=== PATIENT | male | born 1955 | race Caucasian/White ===

== ENCOUNTER 2021-02-02 12:32 | Emergency (ER) | payer OTHER, MEDICARE, SELFPAY ==
[2021-02-02] VITALS (21 sets, daily range): BP systolic 147–164; BP diastolic 61–75; PULSE 81–111; RESP 7–21; TEMP 36.5; O2SAT 92–100
[2021-02-02] MEDS: fentaNYL 100 MCG/2 ML VIAL IVP (12:45)
--- OUTSIDE RECORDS SUMMARY | 2021-02-02 12:58 | XMS_ITS ---
:1955 Author Organization [facility] Address [address] [facility] [address] [place] [address] Care Team Providers Name Role Phone Cox Unavailable Unavailable PROBLEMS ALLERGIES No Known Allergies ENCOUNTERS IMMUNIZATIONS SOCIAL HISTORY REASON FOR REFERRAL FUNCTIONAL STATUS PLAN OF CARE VITAL SIGNS MEDICATIONS PROCEDURES RESULTS REASON FOR VISIT Insurance Providers MEDICAL (GENERAL) HISTORY
[2021-02-02] MEDS: HYDROmorphone 2 MG/ML VIAL 1 MG IVP (13:00)
[2021-02-02] MEDS: Ketamine 500 MG/10 ML VIAL 40 MG IVP (13:15)
--- NOTE | 2021-02-02 13:22 | DI.RAD_ITS ---
EXAM: XR SHOULDER RT 1V CLINICAL HISTORY: pain, possible dislocation. TECHNIQUE: 2D digital imaging was performed. COMPARISON: No exams were available for comparison FINDINGS: A single supine AP view of the shoulder was obtained. The findings are most suggestive of an anterio r dislocation. However complete shoulder series should obtained. IMPRESSION: Limited examination of the left shoulder with only a single view. The findings are suspicious for an anterior shoulder dislocation. A complete shoulder series should be considered for further evaluati on. DATA REPOSITORY: RADIATION DOSE DELIVERED:
[2021-02-02] MEDS: Propofol 200 MG/20 ML VIAL 100 MG IVP (13:25)
--- NOTE | 2021-02-02 13:36 | RESPIRATORY ---
02/02/21- Pt here for a Left shoulder reduction. BVM, Suction set up at bedside. Pre 1320- HR 91, SPO2 100% on 2 LPM NC,ETCO22 29 mmhg, 163/70. During pt Spo2 dropped to 90% Oxygen turned up to 4 LPM to maintain SPO2 of 92% or better. 1330 Post- HR 94, SPO2 96% on 4 LPM NC ETCO2 36 mm hg, 150/68. Pt is waking up and concersing . Pt titrated back down to 2 LPM NC 96%.
--- NOTE | 2021-02-02 13:51 | W.ED.GENAD ---
Discharge Plan Disposition Patient Disposition: HOME Condition: Stable Discharge Details Clinical Impression: Closed dislocation of left shoulder, Fall due to ice or snow, Left hand paresthesia Primary Care Provider: Kevyn Cox ED Provider: Teto Sharp Home Meds and New Rx's Prescriptions: No Action rosuvastatin 20 mg Tablet PO DAILY RF: 0 Discharge Instructions Instructions: Shoulder Dislocation (ED), Paresthesia (ED) Additional Instructions: Please take ibuprofen over the counter. Take 600mg by mouth every 6 hours as needed for pain. Please take acetaminophen (tylenol) - 650mg every 6 hours by mouth as needed for pain. Keep your arm in sling. Please follow-up with orthopedics. Call today to schedule follow-up. Please contact your primary care physician to arrange follow-up. Return to the ER for any worsening or new concerning symptoms. Referrals: [facility] [Provider Group] Kevyn Cox [Primary Care Provider] - Discharge Data Discharge Date/Time-TO BE ENTERED AT DEPARTURE: 02/02/21 15:34 Medical Decision Making 66-year-old male presents with left shoulder injury from slip and fall from standing to the ground. Patient has tingling paresthesias of left digits. Patient has deformity of left shoulder consistent with anterior shoulder dislocation. No other injuries identified on exam. X-ray of the left shoulder, limited secondary to pain was interpreted by me: Consistent with shoulder dislocation. No humeral shaft fracture. Patient in severe distress on arrival secondary to pain. He was given fentanyl 100 mg initially and then additional dose of Dilaudid 1 mg IV. Patient provided verbal consent to proceed with left shoulder reduction under procedural sedation. Procedural sedation performed without complication and joint was reduced, please see procedure notes. Patient was observed in the emergency department post procedurally until return to baseline mentation and for some time thereafter. Patient's arm was splinted with a sling. He did note continued tingling left digits specifically digit 1 and 2 distally. I did call and consult with Dr. Bianchi, on-call orthopedics, regarding paresthesia. He noted that given joint reduction patient should expect improvement in paresthesia. I discussed recommendation for patient to follow-up with orthopedics and to return should have any worsening or new concerning symptoms. HPI General Mode of arrival: ambulatory. Date/Time Provider Initiated Documentation: 02/02/21 12:41. Limitations to Documentation: no limitations. Information obtained by: patient. HPI Narrative: 66-year-old male presents with chief complaint of left shoulder pain. [place] ground and thinks he dislocated shoulder. Pain is severe and constant. Pain localized to the shoulder. He did not hit his head and denies neck pain. No other injury. Patient does note some tingling paresthesia of his left hand that is mild. Patient has never dislocated shoulder in the past. Related Data Home Medications Medication Instructions Recorded Confirmed rosuvastatin mg PO DAILY 02/02/21 Allergies Allergy/AdvReac Type Severity Reaction Status Date / Time No Known Allergies Allergy Unverified 02/02/21 15:42 General Stated Complaint: Orthopedic RANDI: 3 Review of Systems All systems reviewed & are unremarkable except as noted in HPI and below Constitutional Constitutional: Denies fever(s) Cardiovascular Cardiovascular: Denies dyspnea Respiratory Respiratory: Denies dyspnea Musculoskeletal Musculoskeletal: Reports as per HPI Neurologic Neurologic: Reports as per HPI [facility] Social History Smoking/Tobacco Use Status: Former Tobacco Use Quit Date: 11/27/87 Smoking risk assessment performed?: Yes Drug use: Never Substance use type: does not use Do you feel safe at home: Yes Do you feel safe in your relationship?: Yes Exam Const General: cooperative, well developed and in distress severe Orientation: alert and awake HENNH Head: normocephalic and atraumatic Mouth: moist mucous membranes Eyes EOM: EOM intact bilaterally Neck Neck: trachea midline and supple Resp Auscultation: clear to auscultation bilaterally, no rales, no rhonchi and no wheezes Cardio Rate: regular rate and not tachycardic Rhythm: regular rhythm GI Palpation: soft, not firm, no guarding, no masses, not rigid and nontender Back/Spine/Pelvis Cervical Spine: cervical ROM normal, No cervical spinal tenderness and No step off deformity Thoracic/Lumbar Spine: No thoracic spinal tenderness and No lumbar spinal tenderness Skin General skin exam: no rashes or lesions noted Neuro General: patient alert, patient awake, patient oriented x3 and tone normal Cognition: normal cognition Motor: other (Strength 5 out of 5 distal left upper extremity) Other: Right upper extremity: digits with tingling sensation, digit 1 and 2 with tingling sensation to light touch distally Extrem Left upper extremity: shoulder/upper arm Details: tenderness and deformity Location: of the shoulder joint (Dislocated anteriorly) Psych Appearance: grossly normal Mental Status: mental status grossly normal Course Vital Signs Vital signs: Vital Signs Temperature 36.5 C 02/02/21 12:34 Pulse 111 H 02/02/21 12:34 Respiratory Rate 20 02/02/21 12:34 Pulse Oximetry 100 02/02/21 12:34 Temperature 36.5 C 02/02/21 12:34 Temperature Source Skin 02/02/21 12:34 Pulse 89 02/02/21 13:31 Pulse 83 02/02/21 13:40 Respiratory Rate 14 02/02/21 13:40 Respiratory Effort 02/02/21 13:13 Blood Pressure 164/75 H 02/02/21 13:31 Blood Pressure Mean 96 02/02/21 13:31 Pulse Oximetry 98 02/02/21 13:40 Respiratory End-tidal CO2 17 02/02/21 13:40 Oxygen Delivery Method Room Air 02/02/21 12:34 Oxygen Flow Rate 0 02/02/21 12:34 Pain Level 10 02/02/21 13:31 Procedures Orthopedic Joint Reduction Joint #1: Time Out Performed: Yes Side: left Joint Reduction Location: shoulder Analgesia: procedural sedation Shoulder Technique Used (if applicable): external rotation Post-reduction neuro exam: no change Post-reduction vascular: intact Post Reduction X-Ray Obtained: Yes Post Reduction X-Ray Results: reduced Splint Applied: Yes Patient Tolerated Procedure: well and no complications Procedural Sedation Indication: fracture/dislocation reduction ASA Class: I Time of Last PO Intake: 13:00 Preparation: quality assurance monitor final applied, pulse oximeter, capnometry used, supplemental O2 applied, reversal agents at bedside and suction/airway equipment at bedside Ketamine: IV Ketamine dose (mg): 40 IV Propofol dose (mg): 100 Patient Tolerated Procedure: well Complications: none
--- NOTE | 2021-02-02 13:53 | NUR.NOTE ---
time out prior to sedation- given 40 mg ketamine, Dr. Khurram Sharp gave propofol total dosing 100 mg, Anisha Toscano, RT, monitoring airway. Shoulder appears to be in place and patient is now mildly drowsy.Nursing Note:
--- NOTE | 2021-02-02 14:10 | NUR.NOTE ---
Ernestine Alex [phone]
--- NOTE | 2021-02-02 14:21 | DI.RAD_ITS ---
EXAM: XR SHOULDER LT COMP POST REDUC CLINICAL HISTORY: post reduction. TECHNIQUE: 2D digital imaging was performed. COMPARISON: No exams were available for comparison FINDINGS: BONES: There does appear to be a deformity in the lateral aspect of the humeral head suggesting a Hil l-Sachs deformity. JOINTS: There has been successful reduction of the left shoulder dislocation. SOFT TISSUE: Normal. IMPRESSION: Successful reduction of the left shoulder dislocation. DATA REPOSITORY: RADIATION DOSE DELIVERED:
== END 2021-02-02 15:34 | disposition home or self-care (01) ==
PROVIDERS: Emergency Provider Student in an Organized Health Care Education/Training Program; PCP Family Medicine
DX: S43.012A Anterior subluxation of left humerus, initial encounter (principal); W00.0XXA Fall on same level due to ice and snow, initial encounter; R20.2 Paresthesia of skin
CPT/HCPCS: 23650; 73030; 96374; 96375; 73020; J2704; J3010

== ENCOUNTER 2021-02-02 12:33 | Emergency (ER) | payer OTHER, SELFPAY ==
--- NOTE | 2021-02-02 13:43 | NUR.NOTE ---
Nursing Note: Entered in error by Access. Minna Bourgeois
== END 2021-02-02 12:53 | disposition other institution (70) ==
LOC: ER 12:50
PROVIDERS: Emergency Provider Student in an Organized Health Care Education/Training Program
DX: Z53.21 Procedure and treatment not carried out due to patient leaving prior to being seen by health care provider (principal)